=== PATIENT | male | born 1990 | race Caucasian/White ===

== ENCOUNTER 2017-11-17 07:27 | Emergency (ER) | payer OTHER ==
[~2017-11-17] VITALS: Ht 172.7 cm; Wt 81.7 kg
[~2017-11-17 07:27] MED LIST: AMOXICILLIN 50500 MG PO; CORTISPORIN OTI10 ML OTIC; FLEXERIL PO; HYDROCODONE-AP1 EAC6 PO; HYDROCORTISONE3011 TP; IBUPROFEN 600600 M1 PO; IBUPROFEN 800800 M1 PO; LORTAB 5 MG/5001 TA1 PO; MEDROLDOSEPACK PO; NOHOMEMEDICATIONS; NORFLEX100 MG PO; NYSTATIN15 GM TP; PENICILLIN V P500 MG PO; PREDNISONE 20 M20 MG PO; ROBAXIN500 MG PO; TRAMADOL 50 MG50 MG PO; ZOFRAN ODT4 MG PO
[2017-11-17 08:59] VITALS: BP 137/87
== END 2017-11-17 09:00 | disposition home or self-care (01) ==
LOC: M.ERS 07:27
DX: S90.31XA Contusion of right foot, initial encounter (principal); F17.210 Nicotine dependence, cigarettes, uncomplicated; W22.8XXA Striking against or struck by other objects, initial encounter; Y93.89 Activity, other specified; Y92.89 Other specified places as the place of occurrence of the external cause; Y99.8 Other external cause status

== ENCOUNTER 2018-05-17 14:41 | Emergency (ER) | payer OTHER ==
[~2018-05-17] VITALS: Ht 172.7 cm; Wt 90.7 kg
[2018-05-17 15:46] VITALS: BP 140/92
== END 2018-05-17 15:47 | disposition home or self-care (01) ==
LOC: M.ERS 14:41
DX: J02.9 Acute pharyngitis, unspecified (principal); F17.210 Nicotine dependence, cigarettes, uncomplicated

== ENCOUNTER 2018-06-22 11:06 | Emergency (ER) | payer OTHER ==
[~2018-06-22] VITALS: Ht 175.3 cm; Wt 90.7 kg
[2018-06-22] MEDS ORDERED: NAPROSYN500 MG PO (11:49)
[2018-06-22] MEDS ORDERED: ROBAXIN 750 MG750 M1 PO (11:49)
[2018-06-22 12:10] VITALS: BP 135/93
== END 2018-06-22 12:10 | disposition home or self-care (01) ==
LOC: M.ERS 11:06
DX: S29.012A Strain of muscle and tendon of back wall of thorax, initial encounter (principal); F17.210 Nicotine dependence, cigarettes, uncomplicated; X58.XXXA Exposure to other specified factors, initial encounter; Y93.89 Activity, other specified; Y92.89 Other specified places as the place of occurrence of the external cause; Y99.8 Other external cause status